=== PATIENT | male | born 1950 | race Caucasian/White ===

== ENCOUNTER 2020-02-18 13:11 | Outpatient (REF) | payer OTHER, SELFPAY ==
--- NOTE | 2020-02-18 | US_ITS ---
EXAMINATION: ANKLE-BRACHIAL INDICES SINGLE LEVEL PULSE VOLUME RECORDING ARTERIAL DUPLEX BILATERAL LEGS CLINICAL INFORMATION: PVD COMPARISON: 08/17/2019 TECHNIQUE: Ankle-brachial indices and PVR at the ankle were obtained. Duplex Doppler of the bilateral lower extremity arterial systems was performed. FINDINGS: RIGHT: Ankle-brachial index: 1.03 PVR: Normal Common femoral: PSV 264 cm/s. Triphasic waveform. Deep femoral: PSV 139 cm/s. Triphasic waveform. Proximal superficial femoral: PSV 286 cm/s. Triphasic waveform. Mid superficial femoral: PSV 70 cm/s. Triphasic waveform. Distal superficial femoral: PSV 75 cm/s. Triphasic waveform. Popliteal: PSV 72 cm/s. Triphasic waveform. Posterior tibial artery: PSV 84 cm/s. Triphasic waveform. LEFT: Ankle-brachial index: 0.73 PVR: Abnormal Common femoral: PSV 74 cm/s. Triphasic waveform. Deep femoral: PSV 122 cm/s. Triphasic waveform. Proximal superficial femoral: PSV 64 cm/s. Triphasic waveform. Mid superficial femoral: PSV 119 cm/s. Monophasic waveform. Distal superficial femoral: PSV 67 cm/s. Monophasic waveform. Popliteal: PSV 318 cm/s. Monophasic waveform. Posterior tibial artery: PSV 27 cm/s. Monophasic waveform. US/US AVRIL complete IMPRESSION: Atherosclerotic right lower extremity without hemodynamically significant stenosis by Doppler criteria. The PVR waveform is normal. The ankle-brachial index is 1.03. Atherosclerotic left lower extremity with hemodynamically significant disease in the popliteal artery. The PVR waveform is abnormal. Ankle-brachial index is 0.73.
--- NOTE | 2020-02-18 | US_ITS ---
EXAMINATION: ANKLE-BRACHIAL INDICES SINGLE LEVEL PULSE VOLUME RECORDING ARTERIAL DUPLEX BILATERAL LEGS CLINICAL INFORMATION: PVD COMPARISON: 08/17/2019 TECHNIQUE: Ankle-brachial indices and PVR at the ankle were obtained. Duplex Doppler of the bilateral lower extremity arterial systems was performed. FINDINGS: RIGHT: Ankle-brachial index: 1.03 PVR: Normal Common femoral: PSV 264 cm/s. Triphasic waveform. Deep femoral: PSV 139 cm/s. Triphasic waveform. Proximal superficial femoral: PSV 286 cm/s. Triphasic waveform. Mid superficial femoral: PSV 70 cm/s. Triphasic waveform. Distal superficial femoral: PSV 75 cm/s. Triphasic waveform. Popliteal: PSV 72 cm/s. Triphasic waveform. Posterior tibial artery: PSV 84 cm/s. Triphasic waveform. LEFT: Ankle-brachial index: 0.73 PVR: Abnormal Common femoral: PSV 74 cm/s. Triphasic waveform. Deep femoral: PSV 122 cm/s. Triphasic waveform. Proximal superficial femoral: PSV 64 cm/s. Triphasic waveform. Mid superficial femoral: PSV 119 cm/s. Monophasic waveform. Distal superficial femoral: PSV 67 cm/s. Monophasic waveform. Popliteal: PSV 318 cm/s. Monophasic waveform. Posterior tibial artery: PSV 27 cm/s. Monophasic waveform. US/US arterial duplex LE BI IMPRESSION: Atherosclerotic right lower extremity without hemodynamically significant stenosis by Doppler criteria. The PVR waveform is normal. The ankle-brachial index is 1.03. Atherosclerotic left lower extremity with hemodynamically significant disease in the popliteal artery. The PVR waveform is abnormal. Ankle-brachial index is 0.73.
== END 2020-02-18 13:12 | disposition home or self-care (01) ==
LOC: HO.US 13:11
PROVIDERS: Visit Provider Surgery Vascular Surgery
DX: I73.9 Peripheral vascular disease, unspecified (principal)
CPT/HCPCS: 93923; 93925

== ENCOUNTER → 2020-02-25 08:57 | Outpatient (BNVA) | payer OTHER, SELFPAY | PROVIDERS: PCP Internal Medicine; Visit Provider Surgery Vascular Surgery | DX: Z76.89 Persons encountering health services in other specified circumstances (principal) ==

== ENCOUNTER 2020-05-25 12:11 | Outpatient (REF) | payer OTHER, SELFPAY ==
--- NOTE | ~2020-05-25 | US_ITS ---
EXAMINATION: Noninvasive assessment of the arteries of both lower extremities to include a PVR exam complete (3+ levels), bilateral including segmental pressures. ? CLINICAL INFORMATION: Peripheral vascular disease COMPARISON: Arterial duplex and PVR with ABIs on 02/18/2020 ? TECHNIQUE: The ankle/brachial indices of the distal posterior tibial and the dorsalis pedis arteries were obtained of the lower extremity arterial system bilaterally; along with segmental pressures and pulse volume recordings at the ankle, calf and above the knee levels and duplex Doppler techniques of the common femoral, proximal/mid/distal femoral and proximal profunda, popliteal and posterior tibial arteries. The study was performed at rest. ? FINDINGS: ?? RIGHT LEG 1. THE RIGHT ANKLE-BRACHIAL INDEX IS: 1.01 (higher of the DP/PT) >0.97-1.25 = normal - no significant arterial disease 0.75-0.96 = mild peripheral arterial disease 0.5-0.74 = moderate peripheral arterial disease <0.50 = severe peripheral arterial disease <0.30 = critical arterial disease 2. SEGMENTAL PRESSURES: Ankle: DP: 163 mmHg, PT: 164 mmHg 3. PVR WAVEFORMS: Ankle: Normal 4. DIRECT DUPLEX: Common femoral: Triphasic, elevated velocities Proximal femoral: Triphasic Proximal profunda: Biphasic Mid femoral: Triphasic Distal femoral: Triphasic Popliteal: Triphasic Posterior tibial: Triphasic LEFT LE. THE LEFT ANKLE-BRACHIAL INDEX IS: 0.66 (higher of the DP/PT) >0.97-1.25 = normal - no significant arterial disease 0.75-0.96 = mild peripheral arterial disease 0.5-0.74 = moderate peripheral arterial disease <0.50 = severe peripheral arterial disease <0.30 = critical arterial disease 2. SEGMENTAL PRESSURES: Ankle: DP: 107 mmHg, PT: 107 mmHg 3. PVR WAVEFORMS: Ankle: Dampened 4. DIRECT DUPLEX: Common femoral: Triphasic Proximal femoral: Monophasic Proximal profunda: Triphasic Mid femoral: Monophasic Distal femoral: Monophasic Popliteal: Monophasic Posterior tibial: Monophasic US/US arterial duplex LE BI IMPRESSION: 1. Moderate peripheral arterial disease in the left lower extremity, particularly within the popliteal artery and calf. 2. Elevated velocities in the right common femoral artery suggesting moderate stenosis. Normal right lower extremity AVRIL may be falsely elevated due to calcific atherosclerotic disease. 3. No significant change compared to the exam on 02/18/2020.
--- NOTE | ~2020-05-25 | US_ITS ---
EXAMINATION: Noninvasive assessment of the arteries of both lower extremities to include a PVR exam complete (3+ levels), bilateral including segmental pressures. ? CLINICAL INFORMATION: Peripheral vascular disease COMPARISON: Arterial duplex and PVR with ABIs on 02/18/2020 ? TECHNIQUE: The ankle/brachial indices of the distal posterior tibial and the dorsalis pedis arteries were obtained of the lower extremity arterial system bilaterally; along with segmental pressures and pulse volume recordings at the ankle, calf and above the knee levels and duplex Doppler techniques of the common femoral, proximal/mid/distal femoral and proximal profunda, popliteal and posterior tibial arteries. The study was performed at rest. ? FINDINGS: ?? RIGHT LEG 1. THE RIGHT ANKLE-BRACHIAL INDEX IS: 1.01 (higher of the DP/PT) >0.97-1.25 = normal - no significant arterial disease 0.75-0.96 = mild peripheral arterial disease 0.5-0.74 = moderate peripheral arterial disease <0.50 = severe peripheral arterial disease <0.30 = critical arterial disease 2. SEGMENTAL PRESSURES: Ankle: DP: 163 mmHg, PT: 164 mmHg 3. PVR WAVEFORMS: Ankle: Normal 4. DIRECT DUPLEX: Common femoral: Triphasic, elevated velocities Proximal femoral: Triphasic Proximal profunda: Biphasic Mid femoral: Triphasic Distal femoral: Triphasic Popliteal: Triphasic Posterior tibial: Triphasic LEFT LE. THE LEFT ANKLE-BRACHIAL INDEX IS: 0.66 (higher of the DP/PT) >0.97-1.25 = normal - no significant arterial disease 0.75-0.96 = mild peripheral arterial disease 0.5-0.74 = moderate peripheral arterial disease <0.50 = severe peripheral arterial disease <0.30 = critical arterial disease 2. SEGMENTAL PRESSURES: Ankle: DP: 107 mmHg, PT: 107 mmHg 3. PVR WAVEFORMS: Ankle: Dampened 4. DIRECT DUPLEX: Common femoral: Triphasic Proximal femoral: Monophasic Proximal profunda: Triphasic Mid femoral: Monophasic Distal femoral: Monophasic Popliteal: Monophasic Posterior tibial: Monophasic US/US AVRIL complete IMPRESSION: 1. Moderate peripheral arterial disease in the left lower extremity, particularly within the popliteal artery and calf. 2. Elevated velocities in the right common femoral artery suggesting moderate stenosis. Normal right lower extremity AVRIL may be falsely elevated due to calcific atherosclerotic disease. 3. No significant change compared to the exam on 02/18/2020.
== END 2020-05-25 12:12 | disposition home or self-care (01) ==
LOC: HO.US 12:11
PROVIDERS: PCP Internal Medicine; Visit Provider Surgery Vascular Surgery
DX: I65.29 Occlusion and stenosis of unspecified carotid artery (principal); I70.213 Atherosclerosis of native arteries of extremities with intermittent claudication, bilateral legs
CPT/HCPCS: 93923; 93925

== ENCOUNTER → 2020-05-27 11:42 | Outpatient (BNVA) | payer OTHER, SELFPAY | PROVIDERS: PCP Internal Medicine; Visit Provider Surgery Vascular Surgery ==

== ENCOUNTER 2020-06-01 06:08 | Day surgery (SDC) | payer OTHER, SELFPAY ==
[2020-06-01] VITALS (7 sets, daily range): BP systolic 131–153; BP diastolic 75–93; PULSE 92–95; RESP 6–18; TEMP 36.4–36.9; O2SAT 93–96; BMI 40.6
[2020-06-01 06:19] LABS: MANUAL DIFF FLAG NO
[2020-06-01 06:24] LABS: Basophils Absolute Auto 0.1 X10*3/uL (0.0-0.2); Basophils Percent Auto 1.4 % (0-2); Eosinophils Absolute Auto 0.2 X10*3/uL (0.0-0.4); Eosinophils Percent Auto 1.9 % (0-4); Hematocrit 40.6 % (42-52); Hemoglobin 14.3 g/dl (14.0-18.0); Imm Gran Abs Auto 0.03 X10*3/uL (0.00-0.03); Imm Gran Pct Auto 0.4 % (0.0-0.4); Lymphocytes Absolute Auto 1.7 X10*3/uL (1.2-4.9); Lymphocytes Percent Auto 21.2 % (20-40); Mean Corpuscular HGB Conc 35.2 g/dl (31.0-36.0); Mean Corpuscular Hemoglobin 33.7 pg (27.0-33.0); Mean Corpuscular Volume 95.8 fL (80-98); Mean Platelet Volume 9.4 fL (9.4-12.4); Monocytes Absolute Auto 0.7 X10*3/uL (0.1-1.2); Monocytes Percent Auto 9.2 % (2-11); Neutrophils Absolute Auto 5.3 X10*3/uL (2.0-8.3); Neutrophils Percent Auto 65.9 % (45-73); Platelet Count 222 X10*3/uL (160-400); Red Blood Count 4.24 X10*6/uL (4.60-5.80); Red Cell Distribution Width 12.4 % (11.0-16.0); White Blood Count 8.1 X10*3/uL (4.8-10.8)
[2020-06-01 06:29] LABS: Prothrombin Time 11.7 SEC (10.8-13.0)
[2020-06-01 06:32] LABS: Partial Thromboplastin Time 32.8 SEC (24.1-38.0)
[2020-06-01 06:47] LABS: Anion Gap 16 (12-20); Blood Urea Nitrogen 16 mg/dL (9-16); Carbon Dioxide 26 mmol/L (22-29); Chloride 99 mmol/L (96-108); Creatinine Clr Calc Pharmacy 124.6; Estimated Glomerular Filt Rate > 60; Glucose Random 107 mg/dL (60-115); Sodium 137 mmol/L (135-145)
[2020-06-01] MEDS: 0.9 % Sodium Chloride 1,000 ML 100 ML IVCONT (07:11)
--- NOTE | 2020-06-01 10:29 | W.PM.OPN ---
Operative Note Operative Note Date of Service: 06/01/20 Narrative: Angiogram report from [facility] Preoperative diagnosis: Atherosclerosis of left lower extremity with activity limiting claudication Postoperative diagnosis: Same Procedure: 1. Ultrasound-guided right common femoral access 2. Aortogram with left lower extremity runoff 3. Plasty of left posterior tibial artery 4. Plasty of left popliteal artery 5. Plasty of left SFA Surgeon:Cj Barksdale M.D. Wool Hat Forming Machine Tender:None Anesthesia: Local with moderate conscious sedation for a total of 120 minutes, performed by nm Specimens:none Drains:none Estimated blood loss: Less than 10 ml Indications: 70-year-old gentleman with known history of peripheral vascular disease. He has had a prior left femoral endarterectomy. He has developed activity limiting claudication. Most recent AVRIL was 0.66. He now presents for endovascular intervention The patient has signed the informed consent after reviewing risks, complications, benefits, and alternatives previously discussed with the patient in my office. The patient was given the opportunity to ask any additional questions or voice any concerns. All questions were answered to the patient's satisfaction. Procedure in detail: Patient was brought to the angiography suite prior to which a time-out was called for patient identification and site verification. Bilateral groins were prepped and draped in the standard surgical fashion. Under ultrasound guidance right common femoral was punctured with micro puncture needle and wire. Subsequently a precision 4 Grenadian sheath was then placed. Bentson wire was advanced to the level of the aorta. 4 Grenadian Flush catheter was brought up and parked at the level of the renal arteries. Aortogram was then undertaken. Catheter was brought down to the level of the iliac bifurcation. Iliacs were subsequently imaged. Catheter was then brought in up and over to the left side SFA. Runoff study was then undertaken. At this point he was noted to have significant disease at the behind knee popliteal. 7000 units of systemic heparin was administered. After 5 minutes of circulation time up and over 6 Grenadian sheath was then placed. We were able to traverse through the SFA lesion with an 035 wire. Multiple attempts warmer made to cross the popliteal lesion. We had to downsize to the 014 wire. We were finally able to traverse this lesion. In order to create at channel we 1st plasty this area with a 1.5 x 40 balloon with multiple insufflations. We then says upsize to a 2.0 by 40 balloon and plasty this area once again. Once this was accomplished we E they and upsized to the 035 wire. We were able to plasty the posterior tibial artery with a 3 x 40 balloon and this 3 x 40 balloon was used to plasty the popliteal and distal SFA. Once this was accomplished we then did a 4 x 150 balloon in the popliteal and distal SFA. Finally we brought a 5 x 200 drug coated balloon into this area. This was brought into position in under 3 minutes and insufflated for a total of 3 minutes in duration. This demonstrated an excellent result. We then turned our attention to the mid SFA. There was a significant lesion in that area. We 1st plasty aid with a 6 x 20 balloon. Subsequently we brought in a drug coated 6 x 40 balloon. In a similar fashion it was brought in in under 3 minutes and insufflated for a total of 3 minutes in duration. Once this was accomplished completion angiogram demonstrated excellent result catheter wire sheath was brought back to the ipsilateral side. StarClose closure device was deployed. At the end the case sponge instrument counts were correct. Patient tolerated the procedure well returned to recovery with stable vitals. Interpretation of films: 1. Ultrasound demonstrates appropriate femoral puncture. Image of which was saved. 2. Aortogram demonstrates appropriate caliber aorta. Minimal disease. Appropriate take-off of the renals. 3. Iliac images demonstrate no significant disease some mild tortuosity. 4. Left lower extremity study demonstrated good flow through the common femoral which was widely patent good flow through the profundus up proximal SFA had good flow mid SFA had a high-grade stenosis with a calcified lesion distal SFA to popliteal near occlusive calcified disease. There was some disease in the posterior tibial proximally but 3 vessel runoff. 5. Right-sided puncture site demonstrated good flow through the iliacs but there was some common femoral disease and there was some significant disease in the proximal SFA. Conclusion: 1. Successful plasty of left SFA popliteal and posterior tibial arteries. Due to the use of drug coated balloons he will require a minimal of 6 months of aspirin and Plavix which he is already on. This note is constructed using voice recognition software. While every effort has been made to ensure accuracy, cap and hat production supervisor errors may have been included. Thank you for allowing me to participate in the care of your patient. Yours sincerely, Cj Barksdale MD, FACS, R.P.V.I.
== END 2020-06-01 13:00 | disposition home or self-care (01) ==
PROVIDERS: PCP Internal Medicine; Visit Provider Surgery Vascular Surgery
DX: I70.212 Atherosclerosis of native arteries of extremities with intermittent claudication, left leg (principal); Z79.899 Other long term (current) drug therapy; Z87.891 Personal history of nicotine dependence
CPT/HCPCS: 36415; 37224; 37228; 76937; 80048; 85025; 85610; 85730; 99152; 99153; C1725; C1760; C1769; C1887; C2623; J2250; J3010; Q9967

== ENCOUNTER → 2020-06-16 10:09 | Outpatient (BNVA) | payer OTHER, SELFPAY | PROVIDERS: PCP Internal Medicine; Visit Provider Surgery Vascular Surgery ==

== ENCOUNTER 2020-09-12 08:24 | Outpatient (REF) | payer OTHER, SELFPAY ==
--- NOTE | ~2020-09-12 | US_ITS ---
EXAMINATION: COLOR-FLOW DUPLEX IMAGING OF THE BILATERAL LOWER EXTREMITY ARTERIAL SYSTEM. VELOCITY MEASUREMENTS THROUGHOUT THE FEMORAL ARTERIES WITH ANKLE-BRACHIAL PERIPHERAL ARTERIAL TESTING. CLINICAL INFORMATION: This is a 70-year-old male with a history of angioplasty in the left superficial femoral artery, popliteal artery COMPARISON: Arterial duplex and PVR with ABIs on 05/25/2020 and 02/18/2020 ? TECHNIQUE: The ankle/brachial indices of the distal posterior tibial and the dorsalis pedis arteries were obtained of the lower extremity arterial system bilaterally; along with segmental pressures and pulse volume recordings at the ankle, calf and above the knee levels and duplex Doppler techniques of the common femoral, proximal/mid/distal femoral and proximal profunda, popliteal and posterior tibial arteries. The study was performed at rest. ? FINDINGS: ?? RIGHT LEG 1. THE RIGHT ANKLE-BRACHIAL INDEX IS: 1.03. Previously, 1.01 (higher of the DP/PT) >0.97-1.25 = normal - no significant arterial disease 0.75-0.96 = mild peripheral arterial disease 0.5-0.74 = moderate peripheral arterial disease <0.50 = severe peripheral arterial disease <0.30 = critical arterial disease 2. SEGMENTAL PRESSURES: Ankle: DP: 166 mmHg, PT: 158 mmHg 3. PVR WAVEFORMS: Ankle: Normal 4. DIRECT DUPLEX: Common femoral: Triphasic, elevated velocities in the right common femoral artery velocity is 275 cm/s. Proximal femoral: Triphasic elevated velocities measuring 292 cm/s. Proximal profunda: Triphasic with an elevated velocity of 352 cm/s. Mid femoral: Triphasic with a velocity 105 cm/s. Distal femoral: Triphasic with a velocity of 61 cm/s. Popliteal: Triphasic with a velocity of 83 cm/s. Posterior tibial: Triphasic with a velocity of 116 cm/s. LEFT LE. THE LEFT ANKLE-BRACHIAL INDEX IS: 0.94. Previously, 0.66 (higher of the DP/PT) >0.97-1.25 = normal - no significant arterial disease 0.75-0.96 = mild peripheral arterial disease 0.5-0.74 = moderate peripheral arterial disease <0.50 = severe peripheral arterial disease <0.30 = critical arterial disease 2. SEGMENTAL PRESSURES: Ankle: DP: 145 mmHg, PT: 151 mmHg 3. PVR WAVEFORMS: Ankle: Normal and improved 4. DIRECT DUPLEX: Common femoral: Triphasic with a velocity of 69 cm/s. Proximal femoral: Biphasic with a velocity of 76 cm/s. Proximal profunda: Biphasic with a velocity of 104 cm/s. Mid femoral: Biphasic with a velocity of 119 cm/s. Distal femoral: Biphasic with a velocity of 117 cm/s. Popliteal: Triphasic with a velocity of 237 cm/s. This is suspicious for stenosis. Previously, this measured 92 cm/s. Posterior tibial: Biphasic with a velocity of 69 cm/s. US/US arterial duplex LE BI IMPRESSION: 1. The velocities are increased in the right common femoral artery, right profunda femoral artery, proximal right superficial femoral artery. This is suspicious for severe hemodynamically significant stenosis. However, the ankle-brachial indices are within normal limits and may have collateralization. 2. There are elevated velocities in the left popliteal artery which appear to be new. This appears to be a hemodynamically significant stenosis. However, the ankle brachial index is improved when compared to the previous examination and there may be improved distal flow. 3. An arrhythmia was seen during the examination. This would be best evaluated with an EKG.
== END 2020-09-12 08:25 | disposition home or self-care (01) ==
LOC: HO.US 08:24
PROVIDERS: Visit Provider Surgery Vascular Surgery
DX: I70.213 Atherosclerosis of native arteries of extremities with intermittent claudication, bilateral legs (principal)
CPT/HCPCS: 93923; 93925

== ENCOUNTER → 2020-10-04 10:54 | Outpatient (BNVA) | payer OTHER, SELFPAY | PROVIDERS: PCP Internal Medicine; Visit Provider Surgery Vascular Surgery ==

== ENCOUNTER 2021-04-18 12:20 | Outpatient (REF) | payer MEDICARE, OTHER, SELFPAY ==
--- NOTE | ~2021-04-18 | US_ITS ---
EXAMINATION: COLOR-FLOW DUPLEX IMAGING OF THE BILATERAL LOWER EXTREMITY ARTERIAL SYSTEM. VELOCITY MEASUREMENTS THROUGHOUT THE FEMORAL ARTERIES WITH ANKLE-BRACHIAL PERIPHERAL ARTERIAL TESTING. CLINICAL INFORMATION: This is a 70-year-old male with peripheral vascular disease. Claudication. History of left superficial femoral artery angioplasty. Comparison: Comparison is made to a previous study dated 09/12/2020. TECHNIQUE: The ankle/brachial indices of the distal posterior tibial and the dorsalis pedis arteries were obtained of the lower extremity arterial system bilaterally; along with segmental pressures and pulse volume recordings at the ankle, calf and above the knee levels and duplex Doppler techniques of the common femoral, proximal/mid/distal femoral and proximal profunda, popliteal and posterior tibial arteries. The study was performed at rest. ? FINDINGS: ?? RIGHT LEG 1. THE RIGHT ANKLE-BRACHIAL INDEX IS: 0.96. Previously, 1.03. >0.97-1.25 = normal - no significant arterial disease 0.75-0.96 = mild peripheral arterial disease 0.5-0.74 = moderate peripheral arterial disease <0.50 = severe peripheral arterial disease <0.30 = critical arterial disease 2. SEGMENTAL PRESSURES: Ankle: DP: 136 mmHg. Previously, 166 mmHg, PT: 128 mmHg. Previously, 158 mmHg 3. PVR WAVEFORMS: Ankle: Dampened 4. DIRECT DUPLEX: Common femoral: 128 cm/s. Triphasic. Previously, Triphasic, elevated velocities in the right common femoral artery velocity is 275 cm/s. Proximal femoral: 182 cm/s. Triphasic. Previously, Triphasic elevated velocities measuring 292 cm/s. Proximal profunda: 311 cm/s. Triphasic. Previously, Triphasic with an elevated velocity of 352 cm/s. Mid femoral: 78 cm/s and triphasic. Previously, Triphasic with a velocity 105 cm/s. Distal femoral: 79 cm/s and triphasic. Previously, Triphasic with a velocity of 61 cm/s. Popliteal: 98 cm/s and triphasic. Previously, Triphasic with a velocity of 83 cm/s. Posterior tibial: 81 cm/s and triphasic. Previously, Triphasic with a velocity of 116 cm/s. LEFT LE. THE LEFT ANKLE-BRACHIAL INDEX IS: 0.70. Previously, 0.94. >0.97-1.25 = normal - no significant arterial disease 0.75-0.96 = mild peripheral arterial disease 0.5-0.74 = moderate peripheral arterial disease <0.50 = severe peripheral arterial disease <0.30 = critical arterial disease 2. SEGMENTAL PRESSURES: Ankle: DP: 99 mmHg. Previously, 145 mmHg, PT: 96 mmHg. Previously, 151 mmHg 3. PVR WAVEFORMS: Ankle: Dampened. Previously, these appeared normal. 4. DIRECT DUPLEX: Common femoral: 69 cm/s and triphasic. Previously, Triphasic with a velocity of 69 cm/s. Proximal femoral: 62 cm/s and triphasic. Previously, Biphasic with a velocity of 76 cm/s. Proximal profunda: 82 cm/s and triphasic. Previously, Biphasic with a velocity of 104 cm/s. Mid femoral: 60 cm/s and triphasic. Previously, Biphasic with a velocity of 119 cm/s. Distal femoral: 60 cm/s and monophasic. Previously, Biphasic with a velocity of 117 cm/s. Popliteal: 73 cm/s and monophasic. Previously, Triphasic with a velocity of 237 cm/s. Posterior tibial: 36 cm/s and monophasic. Previously, Biphasic with a velocity of 69 cm/s. US/US arterial duplex LE BI IMPRESSION: 1 RIGHT SIDE: There is no hemodynamically significant disease or velocity shift. Although the waveforms are dampened at the ankle the ankle-brachial index is within normal limits. 2. LEFT SIDE: The ankle-brachial index is significantly decreased suggesting moderate stenosis. No focal shift is seen by velocity measurement. However, the waveforms become monophasic in the distal left superficial femoral artery and extending into the popliteal artery. There is a suspicion for hemodynamically significant atherosclerotic disease in the distal left superficial femoral artery.
== END 2021-04-18 12:21 | disposition home or self-care (01) ==
LOC: HO.US 12:20
PROVIDERS: Visit Provider Surgery Vascular Surgery
DX: I73.9 Peripheral vascular disease, unspecified (principal)
CPT/HCPCS: 93923; 93925

== ENCOUNTER → 2021-05-09 08:52 | Outpatient (BNVA) | payer OTHER, MEDICARE, SELFPAY | PROVIDERS: PCP Internal Medicine; Visit Provider Surgery Vascular Surgery | DX: Z13.89 Encounter for screening for other disorder (principal) ==

== ENCOUNTER → 2021-08-08 10:13 | Outpatient (BNVA) | payer MEDICARE, OTHER, SELFPAY | PROVIDERS: PCP Internal Medicine; Visit Provider Surgery Vascular Surgery | DX: I73.9 Peripheral vascular disease, unspecified (principal) | CPT/HCPCS: 99212 ==

== ENCOUNTER → 2021-12-07 10:45 | Outpatient (BNVA) | payer MEDICARE, OTHER, SELFPAY | PROVIDERS: PCP Internal Medicine; Visit Provider Surgery Vascular Surgery | DX: I73.9 Peripheral vascular disease, unspecified (principal) | CPT/HCPCS: 99212 ==

== ENCOUNTER 2022-03-27 13:16 | Outpatient (REF) | payer MEDICARE, OTHER, SELFPAY ==
--- NOTE | ~2022-03-27 | US_ITS ---
EXAMINATION: Noninvasive assessment of the bilateral lower extremities with ARTERIAL DUPLEX and ANKLE BRACHIAL INDICES (ABIs). CLINICAL INFORMATION: Peripheral vascular disease. History of left femoral endarterectomy and angioplasty TECHNIQUE: Duplex Doppler techniques with waveform analysis and measurement of velocities in the bilateral common femoral, profunda femoris, superficial femoral, popliteal and tibial arteries were performed. Additionally, ankle pulse volume recordings, ankle pressure measurements and ankle brachial indices were obtained of the lower extremity arterial system bilaterally. The study was performed only at rest. COMPARISON: 09/12/2020 and 04/18/2021 FINDINGS: DIRECT DUPLEX DOPPLER FINDINGS: RIGHT LEG: Common femoral artery: 228 cm/s, phasicity: Triphasic. Extensive calcified plaque Profunda femoris artery: 55.8 cm/s, phasicity: Biphasic Superficial femoral artery (proximal): 95.6 cm/s, phasicity: Monophasic Superficial femoral artery (mid): 42.1 cm/s, phasicity: Monophasic Superficial femoral artery (distal): 28.7 cm/s, phasicity: Monophasic Popliteal artery: 58.9 cm/s, phasicity: Monophasic Posterior tibial artery: 87.4 cm/s, phasicity: Monophasic Peroneal artery: 32.9 cm/s, phasicity: Monophasic LEFT LEG: Common femoral artery: 73.5 cm/s, phasicity: Triphasic Profunda femoris artery: 61.7 cm/s, phasicity: Triphasic Superficial femoral artery (proximal): 108 cm/s, phasicity: Triphasic Superficial femoral artery (mid): 202 cm/s, phasicity: Triphasic Superficial femoral artery (distal): 46.8 cm/s, phasicity: Monophasic Popliteal artery: 273 cm/s, phasicity: Monophasic Posterior tibial artery: 31.9 cm/s, phasicity: Monophasic Peroneal artery: 25.5 cm/s, phasicity: Monophasic ANKLE-BRACHIAL INDEX: Right: 0.89? Left: 0.72 ANKLE PRESSURES: Right: PT 103, DP 113 Left: PT?92, DP?81 ANKLE PVR WAVEFORMS: Right: Normal Left: Abnormal US/US arterial duplex LE BI IMPRESSION: Right leg: Minimally decreased ankle-brachial index. Elevated velocity with calcified plaque in the common femoral artery consistent with moderate stenosis which is stable. Monophasic waveforms with a decrease velocities is seen in the mid to distal superficial femoral artery, popliteal artery and below-knee runoff vessels with otherwise patent flow most consistent with a diffuse heterogeneous without occlusion. Left leg: Mildly decreased ankle brachial index. Elevated velocity in the mid superficial femoral artery and popliteal artery consistent with moderate to severe stenoses which are stable. AVRIL Reference: - >1.4 = calcified vessels - 0.9 - 1.4 = normal - no significant arterial disease - 0.7 - 0.89 = mild peripheral arterial disease - 0.51 - 0.69 = moderate peripheral arterial disease - ? 0.50 = severe peripheral arterial disease - < .30 = critical arterial disease
== END 2022-03-27 13:17 | disposition home or self-care (01) ==
LOC: HO.US 13:16
PROVIDERS: PCP Internal Medicine; Visit Provider Surgery Vascular Surgery
DX: I70.213 Atherosclerosis of native arteries of extremities with intermittent claudication, bilateral legs (principal)
CPT/HCPCS: 93923; 93925

== ENCOUNTER → 2022-03-29 10:12 | Outpatient (BNVA) | payer MEDICARE, OTHER, SELFPAY | PROVIDERS: PCP Internal Medicine; Visit Provider Surgery Vascular Surgery | DX: I73.9 Peripheral vascular disease, unspecified (principal) | CPT/HCPCS: 99212 ==

== ENCOUNTER 2022-04-11 05:49 | Day surgery (SDC) | payer MEDICARE, OTHER, SELFPAY ==
[2022-04-11] VITALS (8 sets, daily range): BP systolic 120–137; BP diastolic 63–74; PULSE 66–72; RESP 14–18; TEMP 36.4–36.8; O2SAT 94–98; BMI 82.2; BMI 37.3
[2022-04-11] MEDS: 0.9 % Sodium Chloride 1,000 ML 100 ML IVCONT (06:37)
[2022-04-11 06:52] LABS: MANUAL DIFF FLAG NO
[2022-04-11 06:59] LABS: Basophils Absolute Auto 0.1 X10*3/uL (0.0-0.2); Basophils Percent Auto 0.9 % (0-2); Eosinophils Absolute Auto 0.1 X10*3/uL (0.0-0.4); Eosinophils Percent Auto 0.9 % (0-4); Hematocrit 40.3 % (42.0-52.0); Hemoglobin 13.4 g/dl (14.0-18.0); Imm Gran Abs Auto 0.04 X10*3/uL (0.00-0.03); Imm Gran Pct Auto 0.5 % (0.0-0.4); Lymphocytes Absolute Auto 1.7 X10*3/uL (1.2-4.9); Lymphocytes Percent Auto 19.8 % (20-40); Mean Corpuscular HGB Conc 33.3 g/dl (31.0-36.0); Mean Corpuscular Hemoglobin 30.7 pg (27.0-33.0); Mean Corpuscular Volume 92.4 fL (80.0-98.0); Mean Platelet Volume 9.4 fL (9.4-12.4); Monocytes Absolute Auto 0.9 X10*3/uL (0.1-1.2); Monocytes Percent Auto 10.4 % (2-11); Neutrophils Absolute Auto 5.7 x10*3/uL (2.0-8.3); Neutrophils Percent Auto 67.5 % (45-73); Platelet Count 184 X10*3/uL (160-400); Red Blood Count 4.36 X10*6/uL (4.60-5.80); White Blood Count 8.5 X10*3/uL (4.8-10.8)
[2022-04-11 07:14] LABS: Blood Urea Nitrogen 27 mg/dL (9-16); Creatinine Clr Calc Pharmacy 105.6; Estimated Glomerular Filt Rate > 60
--- NOTE | 2022-04-11 09:51 | P.OP_ITS ---
Operative Note Operative Note Date of Service: 04/11/22 Narrative: Angiogram report from [facility] Preoperative diagnosis: Atherosclerosis of left lower extremity with activity limiting claudication Postoperative diagnosis: Same Procedure: 1. Ultrasound-guided right common femoral access 2. Aortogram with left lower extremity runoff 3. Atherectomy and plasty of left SFA Surgeon:Cj Barksdale M.D., FACS, RPVI [employer] Driver:None Anesthesia: Local with moderate conscious sedation. Total intraservice moderate sedation time was 83 minutes. I monitored the patient's level of consciousness and physiologic status continuously throughout the procedure. Specimens:none Drains:none Estimated blood loss: Less than 10 ml Implant: [employer] Impact DCB 6 x 120 Indications: 71-year-old gentleman with significant history of peripheral vascular disease now presents for endovascular intervention. Of note he has had prior left endarterectomy and prior treatment. He now presents for endovascular intervention The patient has signed the informed consent after reviewing risks, complications, benefits, and alternatives previously discussed with the patient. The patient was given the opportunity to ask any additional questions or voice any concerns. All questions were answered to the patient's satisfaction. Procedure in detail: Patient was brought to the angiography suite prior to which a time-out was called for patient identification and site verification. Bilateral groins were prepped and draped in the standard surgical fashion. Under ultrasound guidance right common femoral was punctured with micro puncture needle and wire. Subsequently a precision 4 Lithuanian sheath was then placed. Bentson wire was advanced to the level of the aorta. 4 Lithuanian Flush catheter was brought up and parked at the level of the renal arteries. Aortogram was then undertaken. Catheter was brought down to the level of the iliac bifurcation. Iliacs were subsequently imaged. Catheter was then brought in up and over to the left side SFA. Runoff study was then undertaken. It was noted that he had significant distal SFA and popliteal disease. At this time 8000 units of systemic heparin was administered. After 5 minutes of circulation time up and over 6 Lithuanian sheath was then placed. 035 glidewire was used to traverse the SFA. We then downsized to a 014 wire. We had significant difficulty traversing the began knee popliteal. There was 2 significant calcific lesions there the more proximal 1 we were able to get across and we kept on going into a collateral. The more distal 1 was a near total occlusion we could not get around it. At this time we decided to treat the distal SFA. We placed a 6 Lithuanian spider wire. Over this we used a Hawk 1 atherectomy device. Multiple unidirectional passes of this was then undertaken. Once this was accomplished we then plasty this area with a 4 x 100 regular balloon to obtain some luminal diameter. Once this was accomplished we placed a 6 x 120 drug coated balloon. This was brought into position in under 3 minutes and insufflated for a total of 3 minutes in duration. Once this was accomplished completion angiogram was then undertaken. Good result was noted. Catheter wire sheath was brought back to the ipsilateral side. Right groin was imaged. We subsequently deployed a StarClose closure device. Adequate hemostasis was achieved. Patient tolerated the procedure well. Returned to recovery with stable vitals. Interpretation of films: 1. Ultrasound demonstrates appropriate femoral puncture. Image of which was saved. 2. Aortogram demonstrates appropriate caliber aorta. Minimal disease. Appropriate take-off of the renals. 3. Iliac images demonstrate no significant disease 4. Left Leg Common femoral artery: Patent with no significant disease Profundus Femoris: No significant disease Superficial femoral artery: Mild calcific lesions in the proximal part distal SFA at [facility] high-grade stenosis Popliteal artery (p1,p2,p3): High-grade stenosis behind knee below-knee vessels supplied by multiple collaterals. Anterior tibial artery: No significant disease Peroneal artery: No significant disease Posterior tibial artery: No significant disease Dorsalis pedis/plantar arch: Incomplete Conclusion: 1. Successful atherectomy and plasty of left SFA 2. Anticoagulation status: Continue with aspirin and Plavix for minimum of 6 months This note is constructed using voice recognition software. While every effort has been made to ensure accuracy, graphite mill operator errors may have been included. Thank you for allowing me to participate in the care of your patient. Yours sincerely, Cj Barksdale MD, FACS, R.P.V.I.
== END 2022-04-11 12:06 | disposition home or self-care (01) ==
PROVIDERS: PCP Internal Medicine; Visit Provider Surgery Vascular Surgery
DX: I70.212 Atherosclerosis of native arteries of extremities with intermittent claudication, left leg (principal); M79.662 Pain in left lower leg; R25.2 Cramp and spasm; E03.9 Hypothyroidism, unspecified; Z79.82 Long term (current) use of aspirin; Z79.02 Long term (current) use of antithrombotics/antiplatelets; Z98.890 Other specified postprocedural states; Z87.891 Personal history of nicotine dependence
CPT/HCPCS: 36415; 37225; 76937; 82565; 84520; 85025; 99152; 99153; C1714; C1725; C1760; C1769; C1887; J1643; J2250; J3010; Q9967